=== PATIENT | male | born 1975 | race African-American/Black ===

== ENCOUNTER 2020-03-11 09:32 | Inpatient (IN) ==
--- NOTE | 2020-03-11 09:54 | Emergency Department Note ---
Impression & Plan Acute urinary retention ED Provider Note NAME: GEOFFREY Swanson [id number] PEOPLES AGE: 44 SEX: M : 1975 ARRIVES VIA: [employer] INFORMANT: Patient, ED PROVIDER(S): Tyrone Romano DO CHIEF COMPLAINT: Urinary retention HPI: The patient is a 44-year-old male who presented to the emergency department for an evaluation of urinary retention. The patient has been noticing decreasing urine output over the last 3 days. He does have a history of prostate problems in the past but does not take any medications for prostate p roblems and currently carries no medical problems is only [id number] medications that he uses or NSAIDs. He denies having any nausea or vomiting. He does complain of abdominal distention and discomfort. He does not have any back pain. He does not have any current headache. The patient does complain of left lower extremity pain which goes from his groin down into his lower leg. He denies having any swelling numbness or coldness. He states his pain is moderate. His pain worsened after they [facility] to [facility] and he started having derik hematuria. ROS: See above HPI for pertinent positives & negatives. A total of 10 systems reviewed and were otherwise negative. PAST MEDICAL HISTORY: See Below PAST SURGICAL HISTORY: See Below FAMILY HISTORY: See Below SOCIAL HISTORY: See Below HOME MEDICATIONS: See Below ALLERGIES: See Below VITALS: See Below PHYSICAL EXAMINATION: GENERAL: The patient is awake and alert. He is very anxious appearing and appears to be uncomfortable. EYES: The conjunctivae are clear. The pupils are round and reactive. EARS, NOSE, MOUTH AND THROAT: The nose is without any evidence of any deformity. Mucous membranes are moist. Tongue is midline. NECK: The neck is nontender and supple. RESPIRATORY: Normal respiratory effort is noted there is no evidence of wheezing rhonchi or rales CARDIOVASCULAR: Regular rate and rhythm noted there no murmurs rubs or gallops normal S1 normal S2. GASTROINTESTINAL: The abdomen is moderately distended with suprapubic tenderness. There is no guarding rigidity. BACK: No midline tenderness or or step-off noted range of motion in flexion extension as well as rotation no signs of muscle spasm noted MUSCULOSKELETAL/EXTREMITIES: There is no evidence of gross deformity full range of motion is noted in the hips and shoulders. SKIN: There is no obvious evidence of any rash. There are no petechiae, pallor or cyanosis noted. NEUROLOGIC: Patient is awake alert and oriented x3 strength is symmetric patellar reflexes are 2+ bilaterally MEDICAL DECISION MAKING: The patient is a 44-year-old male who presented [facility] the emergency department [facility] jail for an evaluation of difficulty urinating. The patient has a history of enlarged inflamed prostate in the past but he does not take any chronic medications for prostate. The patient has been noticing decreased urine output over the last few days. He had been unable to pass urine since this morning. The patient symptoms were moderate to severe. He was sent to the emergency department after they were unable to place a Cardona catheter at the jail. We made multiple attempts to pass a Cardona catheter in the emergency department. I was concerned a false track was created as the Cardona catheter passage was difficult. The patient has no history of stricture. This reason we consulted urology. They evaluated the patient in the emergency department but felt that he required to be taken to the emergency department for further evaluation. I discussed the patient's laboratory and radiographic studies with him. He was treated with IV antibiotics. He also complained of some lower extremity pain. A Doppler was ordered but is still pending at this time. Triage Nursing notes reviewed. Prior medical records reviewed Vital Signs: reviewed and remarkable for no significant abnormalities Differential diagnosis: Etiologies such as appendicitis, diverticulitis, obstruction, inflammatory bowel disease, renal colic, PUD, biliary pathology, pancreatitis, mesenteric ischemia, aortic pathology, infections, genitourinary, UTI, perforated viscus, as well as others were entertained. ER treatment provided: See below Diagnostics interpreted by me: ECG: EKG was obtained in the emergency department prior to the patient going to the operating room. My interpretation is normal sinus rhythm at 87 bpm. There is no ectopy. There were no acute ST segment abnormalities noted. Cardiac Monitoring: An order was placed for continuous cardiac monitoring. The monitor shows a rate of 92 bpm with sinus rhythm. Laboratory studies: As stated above and show below. Imaging studies: See below Consultation(s): 1130: I discussed this case with Rosie who is on for urology they will evaluate the patient in the emergency department. The urology cart was ordered to the bedside. Past Med/Surg History Medical History (Updated 03/11/20 @ 16:43 by Tyrone Romano DO) No significant past medical history Surgical History (Updated 03/11/20 @ 15:09 by Kiley Camarena MD) No significant past surgical history Social History Smoking Status: Never smoker Do You Dip or Chew Tobacco: No; Hx Alcohol Use: No Hx Substance Use: No Allergies Allergies Allergy/AdvReac Type Severity Reaction Status Date / Time No Known Drug Allergies Allergy Unknown Unverified 03/11/20 10:53 peanut Allergy Unknown Unverified 03/11/20 10:53 Home Meds Home Medications Medication Instructions Recorded Confirmed No Known Home Medications 03/11/20 03/11/20 Results & Data (ED) Vital Signs Vital Signs - 24 hr 03/11/20 09:36 03/11/20 09:52 03/11/20 11:33 Temperature 36.9 C Temperature Source Oral Pulse Rate 96 H Pulse Rate [Apical] 79 Respiratory Rate 20 18 Respiratory Effort / Characteristics Respiratory Depth Respiratory Pattern Blood Pressure 133/91 Blood Pressure [Left Arm] 134/90 Blood Pressure Mean 105 Blood Pressure Mean [Left Arm] 104 Blood Pressure Position [Left Arm] Pulse Oximetry 96 96 97 Oxygen Delivery Method Room Air Room Air Room Air Sepsis Recent Fever Within 48 Hours No Sepsis New/Unexplained Change in Mental Status No Sepsis Action Taken by Nursing No Action Required 03/11/20 13:00 03/11/20 14:42 Temperature 37.7 C H Temperature Source Oral Pulse Rate Pulse Rate [Apical] 84 Respiratory Rate 18 18 Respiratory Effort / Characteristics Non-Labored Spontaneous Respiratory Depth Normal Respiratory Pattern Regular Blood Pressure Blood Pressure [Left Arm] 135/88 109/72 Blood Pressure Mean Blood Pressure Mean [Left Arm] 103 84 Blood Pressure Position [Left Arm] Lying Pulse Oximetry 97 93 Oxygen Delivery Method Room Air Room Air Sepsis Recent Fever Within 48 Hours Sepsis New/Unexplained Change in Mental Status Sepsis Action Taken by Assisted Medications Current Medication List: was personally reviewed by me Laboratory Data Attestation: I reviewed the patient's lab results. Result diagrams: 03/11/20 15:13 03/11/20 10:10 Lab Results 03/11/20 03/11/20 03/11/20 Range/Units 10:10 10:10 14:10 WBC 10.91 H (4.8-10.8) K/uL RBC 4.76 (4.7-6.1) M/uL Hgb 13.4 L (14.0-18.0) g/dL Hct 38.2 L (42-52) % MCV 80.3 (80-100) fL MCH 28.2 (25-34) pg MCHC 35.1 (32-36) g/dL RDW Std Deviation 41.7 (36.4-46.3) fL RDW Coeff of Nino 14.2 (11.5-14.5) % Plt Count 73 L (130-400) K/uL MPV 10.2 (7.4-10.4) fL Immature Gran % (Auto) 0.5 % Neut % (Auto) 70.1 % Lymph % (Auto) 17.6 % [place] % (Auto) 11.5 % Eos % (Auto) 0.2 % Baso % (Auto) 0.1 % Neut # (Auto) 7.64 H (1.4-6.5) K/uL Lymph # (Auto) 1.92 (1.2-3.4) K/uL [place] # (Auto) 1.26 H (0.11-0.59) K/uL Eos # (Auto) 0.02 (0-0.5) K/uL Baso # (Auto) 0.01 (0-0.2) K/uL Immature Gran # (Auto) 0.06 H (0.00-0.02) K/uL Platelet Estimate Decreased L (Normal) Sodium 138 (136-145) mmol/L Potassium 3.6 (3.5-5.1) mmol/L Chloride 103 (98-107) mmol/L Carbon Dioxide 28 (21-32) mmol/L Anion Gap 7.0 (3-11) BUN 21 H (7-18) mg/dl Creatinine 1.08 (0.6-1.4) mg/dl Est Cr Clr Drug Dosing Not Reportable Est GFR ( Amer) 96.9 Est GFR (Non-Af Amer) 83.6 BUN/Creatinine Ratio 19.8 (10-20) Glucose 128 H (70-99) mg/dl Calcium 8.8 (8.5-10.1) mg/dl Total Bilirubin 0.9 (0.2-1) mg/dl AST 75 H (15-37) U/L ALT 100 H (12-78) U/L Alkaline Phosphatase 187 H (45-117) U/L Troponin I (0-0.045) ng/ml Total Protein 7.4 (6.4-8.2) gm/dl Albumin 3.2 L (3.4-5.0) gm/dl Globulin 4.2 H (2.5-4.0) gm/dl Albumin/Globulin Ratio 0.8 L (0.9-2) Lipase 92 (73-393) U/L COVID-19 Eval [facility] SARS-CoV-2, RNA, NAAT (NEGATIVE) Blood Type Antibody Screen Crossmatch 03/11/20 03/11/20 03/11/20 Range/Units 14:10 15:13 15:13 WBC (4.8-10.8) K/uL RBC (4.7-6.1) M/uL Hgb (14.0-18.0) g/dL Hct (42-52) % MCV (80-100) fL MCH (25-34) pg MCHC (32-36) g/dL RDW Std Deviation (36.4-46.3) fL RDW Coeff of Nino (11.5-14.5) % Plt Count (130-400) K/uL MPV (7.4-10.4) fL Immature Gran % (Auto) % Neut % (Auto) % Lymph % (Auto) % [place] % (Auto) % Eos % (Auto) % Baso % (Auto) % Neut # (Auto) (1.4-6.5) K/uL Lymph # (Auto) (1.2-3.4) K/uL [place] # (Auto) (0.11-0.59) K/uL Eos # (Auto) (0-0.5) K/uL Baso # (Auto) (0-0.2) K/uL Immature Gran # (Auto) (0.00-0.02) K/uL Platelet Estimate (Normal) Sodium (136-145) mmol/L Potassium (3.5-5.1) mmol/L Chloride (98-107) mmol/L Carbon Dioxide (21-32) mmol/L Anion Gap (3-11) BUN (7-18) mg/dl Creatinine (0.6-1.4) mg/dl Est Cr Clr Drug Dosing Est GFR ( Amer) Est GFR (Non-Af Amer) BUN/Creatinine Ratio (10-20) Glucose (70-99) mg/dl Calcium (8.5-10.1) mg/dl Total Bilirubin (0.2-1) mg/dl AST (15-37) U/L ALT (12-78) U/L Alkaline Phosphatase (45-117) U/L Troponin I < 0.015 (0-0.045) ng/ml Total Protein (6.4-8.2) gm/dl Albumin (3.4-5.0) gm/dl Globulin (2.5-4.0) gm/dl Albumin/Globulin Ratio (0.9-2) Lipase (73-393) U/L COVID-19 Eval Order SARS-CoV-2, RNA, NAAT NEGATIVE (NEGATIVE) Blood Type AB Positive Antibody Screen NEGATIVE Crossmatch See Detail 03/11/20 Range/Units 15:13 WBC 11.09 H (4.8-10.8) K/uL RBC 4.76 (4.7-6.1) M/uL Hgb 13.4 L (14.0-18.0) g/dL Hct 38.2 L (42-52) % MCV 80.3 (80-100) fL MCH 28.2 (25-34) pg MCHC 35.1 (32-36) g/dL RDW Std Deviation 41.8 (36.4-46.3) fL RDW Coeff of Nino 14.3 (11.5-14.5) % Plt Count 79 L (130-400) K/uL MPV 10.3 (7.4-10.4) fL Immature Gran % (Auto) % Neut % (Auto) % Lymph % (Auto) % [place] % (Auto) % Eos % (Auto) % Baso % (Auto) % Neut # (Auto) (1.4-6.5) K/uL Lymph # (Auto) (1.2-3.4) K/uL [place] # (Auto) (0.11-0.59) K/uL Eos # (Auto) (0-0.5) K/uL Baso # (Auto) (0-0.2) K/uL Immature Gran # (Auto) (0.00-0.02) K/uL Platelet Estimate (Normal) Sodium (136-145) mmol/L Potassium (3.5-5.1) mmol/L Chloride (98-107) mmol/L Carbon Dioxide (21-32) mmol/L Anion Gap (3-11) BUN (7-18) mg/dl Creatinine (0.6-1.4) mg/dl Est Cr Clr Drug Dosing Est GFR ( Amer) Est GFR (Non-Af Amer) BUN/Creatinine Ratio (10-20) Glucose (70-99) mg/dl Calcium (8.5-10.1) mg/dl Total Bilirubin (0.2-1) mg/dl AST (15-37) U/L ALT (12-78) U/L Alkaline Phosphatase (45-117) U/L Troponin I (0-0.045) ng/ml Total Protein (6.4-8.2) gm/dl Albumin (3.4-5.0) gm/dl Globulin (2.5-4.0) gm/dl Albumin/Globulin Ratio (0.9-2) Lipase (73-393) U/L COVID-19 Eval Order SARS-CoV-2, RNA, NAAT (NEGATIVE) Blood Type Antibody Screen Crossmatch Administered Medications Sodium Chloride (Nss) 250 mls @ 15 mls/hr IV .[id number] PRN PRN Reason: For Transfusion Stop: 03/12/20 00:03 Last Admin: 03/11/20 15:25 Dose: 15 mls/hr Documented by: [id number] Discontinued Medications Levofloxacin/Dextrose (Levaquin/D5w) 750 mg in 150 mls @ 100 mls/hr IV NOW STA Stop: 03/11/20 15:28 Last Admin: 03/11/20 15:23 Dose: 100 mls/hr Documented by: [id number] Ioversol (Optiray 300) 50 ml IV ONCE ONE Stop: 03/11/20 15:55 Last Admin: 03/11/20 15:56 Dose: Not Given Documented by: [id number] Ioversol (Optiray 300) 50 ml NA ONCE ONE Stop: 03/11/20 15:58 Last Admin: 03/11/20 16:27 Dose: Not Given Documented by: [id number] Blood Pressure Blood Pressure Findings: Normal blood pressure Discharge Plan Visit Data Chief Complaint: Unable to Void Stated Complaint: UNABLE TO VOID ED Provider: Tyrone Romano Discharge Problem: Acute urinary retention Patient Disposition: Still a Patient Condition: Good Discharge Instructions Interventions: ED Discharge Assessment Last Done: 03/11/20 14:41
[2020-03-11 10:46] LABS: Alanine Aminotransferase 100 U/L (12-78); Albumin Level 3.2 gm/dl (3.4-5.0); Aspartate Aminotransferase 75 U/L (15-37); BUN Creatinine Ratio 19.8 (10-20); Blood Urea Nitrogen 21 mg/dl (7-18); Calcium 8.8 mg/dl (8.5-10.1); Carbon Dioxide 28 mmol/L (21-32); Chloride 103 mmol/L (98-107); Est GFR (African American) 96.9; Est GFR (Non-African American) 83.6; Glucose 128 mg/dl (70-99); Lipase 92 U/L (73-393); Potassium 3.6 mmol/L (3.5-5.1); Sodium 138 mmol/L (136-145)
[2020-03-11 10:49] LABS: Albumin Globulin Ratio 0.8 (0.9-2); Alkaline Phosphatase 187 U/L (45-117); Bilirubin,Total 0.9 mg/dl (0.2-1); Globulin 4.2 gm/dl (2.5-4.0); Total Protein 7.4 gm/dl (6.4-8.2)
[2020-03-11 10:54] LABS: Hematocrit (blood only) 38.2 % (42-52); Hemoglobin 13.4 g/dL (14.0-18.0); Lymphocytes % (auto) 17.6 %; Mean Corpuscular Hemoglobin 28.2 pg (25-34); Mean Corpuscular Hgb Conc 35.1 g/dL (32-36); Mean Corpuscular Volume 80.3 fL (80-100); Mean Platelet Volume 10.2 fL (7.4-10.4); Monocytes % (auto) 11.5 %; Neutrophils % (auto) 70.1 %; Platelet Count 73 K/uL (130-400); RDW Coefficient of Variation 14.2 % (11.5-14.5); RDW Standard Deviation 41.7 fL (36.4-46.3); Red Blood Count 4.76 M/uL (4.7-6.1); White Blood Count 10.91 K/uL (4.8-10.8)
[2020-03-11 10:55] LABS: Basophils # (auto) 0.01 K/uL (0-0.2); Basophils % (auto) 0.1 %; Eosinophils # (auto) 0.02 K/uL (0-0.5); Eosinophils % (auto) 0.2 %; Immature Granulocytes # (auto) 0.06 K/uL (0.00-0.02); Immature Granulocytes % (auto) 0.5 %; Lymphocytes # (auto) 1.92 K/uL (1.2-3.4); Monocytes # (auto) 1.26 K/uL (0.11-0.59); Neutrophils # (auto) 7.64 K/uL (1.4-6.5); Platelet Estimate Decreased (Normal)
[2020-03-11] MEDS ORDERED: levoFLOXacin/D5W 750 MG/150 ML BAG IV STA (13:59)
[2020-03-11] MEDS ORDERED: SODIUM CHLORIDE 0.9% 250 ML IV PRN (14:01)
--- NOTE | 2020-03-11 14:24 | Urology Consultation ---
Date of Consultation March 11, 2020 Assessment & Plan (1) Acute urinary retention: 44yo male admitted with acute urinary retention -Unable to pass Valle catheter -Dr. Sauer attempted bedside cysto that was unsuccessful -Findings reviewed with Dr. Sauer. Given his acute urinary retention, will proceed to the OR for Cystoscopy, possible urethral dilation, possible valle catheter placement, possible suprapubic tube placement. Risks and benefits to be reviewed with patient by Dr. Sauer. OR notified. Preoperative CXR and EKG ordered. Will cover with IV antibiotics preoperatively. -Patient agreeable to plan. All questions were answered. Supervising Physician Co-Signing Physician Notes agree with above History of Present Illness Reason for Consultation: Urinary retention History of Present Illness The patient is a 44-year-old male who presented to the emergency department today for evaluation of urinary retention. The patient has been noticing decreasing urine output over the last 3 days and difficulty voiding. He stated his pain worsened after they tried to insert a Valle catheter at the [facility] and he started having derik hematuria. No significant PMHx. Chart Review: Afebrile WBC 10.91 Cr 1.08 Bladder scan 561ml Patient examined at bedside today with Dr. Sauer. He reports decreased urine output and difficulty with emptying his bladder over the past 3 days. His pain has worsened with the multiple attempts to insert a catheter. He does reports some abdominal discomfort and distention. Denies fevers or chills. Denies nausea or vomiting. Denies hx of prostate cancer or prostate issues. Denies hx of urinary retention. Allergies Allergy/AdvReac Type Severity Reaction Status Date / Time No Known Drug Allergies Allergy Unknown Unverified 03/11/20 10:53 peanut Allergy Unknown Unverified 03/11/20 10:53 Home Medications Home Medications Medication Instructions Recorded Confirmed Type No Known Home Medications 03/11/20 03/11/20 History Patient History Medical History (Updated 03/11/20 @ 15:09 by Kiley Camarena MD) No significant past medical history Surgical History (Updated 03/11/20 @ 15:09 by Kiley Camarena MD) No significant past surgical history Social History Smoking Status: Never smoker Do You Dip or Chew Tobacco: No; Hx Alcohol Use: No Hx Substance Use: No Review of Systems Constitutional: as per Subjective / HPI Gastrointestinal: as per Subjective / HPI Genitourinary: + as per Subjective / HPI Physical Exam Constitutional: Appears uncomfortable and anxious Neck: normal visual inspection Respiratory: normal respiratory effort, lungs clear to auscultation Cardiovascular: Rate/Rhythm: regular rate and regular rhythm Gastrointestinal (Abdomen): Suprapubic tenderness Musculoskeletal: Head/Neck/Chest: normocephalic Skin: no rashes, warm and dry Neurologic: awake; not confused Psychiatric: Orientation: alert, oriented x 3 and cooperative Genitourinary: no penis abnormality and no scrotum abnormality Results & Data ([facility]) Vital Signs (Past 12 Hours) Vital Signs Temp Pulse Pulse Resp BP BP Pulse Ox 03/11/20 13:00 84 18 135/88 97 03/11/20 11:33 79 18 134/90 97 03/11/20 09:52 96 03/11/20 09:36 36.9 C 96 H 20 133/91 96 PG Care Time/CCT Total # of Minutes Spent Total Time Spent with Patient: Total time spent is greater than 50% in coordination of care (as documented) at patient's floor/unit and/or counseling patient: Coding Level of Care Code 44334 Inpt Consult Level 4 Diagnoses Acute urinary retention R33.8
--- NOTE | 2020-03-11 14:42 | Electrocardiogram Report ---
Test Reason : Blood Pressure : / mmHG Vent. Rate : 087 BPM Atrial Rate : 087 BPM P-R Int : 154 ms QRS Dur : 094 ms QT Int : 370 ms P-R-T Axes : 036 022 015 degrees QTc Int : 445 ms Normal sinus rhythm Normal ECG No previous ECGs available Confirmed by Negrito Dennis ([id number]) on 03/11/2020 2:42:33 PM Referred By: [facility] Confirmed By:Jasvir Dennis
[2020-03-11] MEDS ORDERED: MIDAZOLAM HCL 1 MG/ML 2ML VIAL ONE (14:43)
[2020-03-11] MEDS ORDERED: fentaNYL citrate 100 MCG/2 ML VIAL ONE ×2 (14:43→15:40)
--- NOTE | 2020-03-11 14:59 | History & Physical Bridge Note ---
Date of Service March 11, 2020 History & Physical Bridge Note I have examined the patient, reviewed the History & Physical and in the interval since the performance of the History & Physical I have noted the following changes of clinical significance: no changes noted
--- NOTE | 2020-03-11 15:03 | Anesthesiology Consultation ---
Date of Service March 11, 2020 Assessment & Plan (1) Encounter for pre-operative examination: Chart Review Chart Review: Acceptable Risk for Surgery and Patient NOT seen in Pre Admission Testing Consults Requested none ASA [id number] Proposed Anesthesia Anesthesia Type: General Risk / Benefits Reviewed With: PT / POA / Parent / Guardian, Accepts Plan and Informed Consent Obtained Additional Notes Patient consented for receiving blood products with anesthesia consent due to labs showing thrombocytopenia. Type and cross and platelet recheck ordered and drawn prior to going to operating room History Surgery Operation Date: 03/11/20 15:00 Proposed Procedures p Cystoscopy, Ureteral Dilation, - Jasson Sauer MD s Suprapubic Catheter Placement - Jasson Sauer MD Height/Weight Height: 5 ft 9 in Weight: 134 kg Allergies Allergy/AdvReac Type Severity Reaction Status Date / Time No Known Drug Allergies Allergy Unknown Unverified 03/11/20 10:53 peanut Allergy Unknown Unverified 03/11/20 10:53 Medications Home Medications Medication Instructions Recorded Confirmed Last Taken No Known Home Medications 03/11/20 03/11/20 Unknown NPO Date Last Intake of Fluids: 03/10/20 Time Last Intake of Fluids: 22:00 Date Last Intake of Solids: 03/10/20 Time Last Intake of Solids: 22:00 Past Medical History Medical History (Updated 03/11/20 @ 15:09 by Kiley Camarena MD) No significant past medical history Exercise / Class Metabolic Activity II 4-5 Yardwork/Stairs/Walk up hill Past Surgical History Surgical History (Updated 03/11/20 @ 15:09 by Kiley Camarena MD) No significant past surgical history Past Anesthesia History No Family Hx of Anesthesia Complications History of PONV No Hx of Motion Sickness Social History Smoking Status: Never smoker Do You Dip or Chew Tobacco: No Hx Alcohol Use: No Hx Substance Use: No Review of Systems Negative for chest pain or shortness of breath. Patient denies active symptoms of GERD. Physical Exam Vital Signs Last Vital Signs Temp 37.7 C H 03/11/20 14:42 Pulse 84 03/11/20 13:00 Resp 18 03/11/20 14:42 BP 109/72 03/11/20 14:42 Pulse Ox 93 03/11/20 14:42 Constitutional + morbidly obese ENMT Mouth: no TMJ abnormality and oral opening not small Thyromental Distance: > or= 3.5 Finger Breadths Mallampati Class: II Neck normal visual inspection; neck extension not limited Respiratory normal respiratory effort Auscultation: lungs clear to auscultation bilaterally Cardiovascular Rate/Rhythm: regular rate and regular rhythm Heart Sounds: no murmur Neurologic moves all extremities Psychiatric Orientation: alert and oriented x 3 Testing Laboratory Results 03/11/20 10:10 03/11/20 10:10
[2020-03-11 15:22] LABS: Hematocrit (blood only) 38.2 % (42-52); Hemoglobin 13.4 g/dL (14.0-18.0); Mean Corpuscular Hemoglobin 28.2 pg (25-34); Mean Corpuscular Hgb Conc 35.1 g/dL (32-36); Mean Corpuscular Volume 80.3 fL (80-100); RDW Coefficient of Variation 14.3 % (11.5-14.5); RDW Standard Deviation 41.8 fL (36.4-46.3); Red Blood Count 4.76 M/uL (4.7-6.1); White Blood Count 11.09 K/uL (4.8-10.8)
[2020-03-11 15:26] LABS: Mean Platelet Volume 10.3 fL (7.4-10.4); Platelet Count 79 K/uL (130-400)
[2020-03-11] MEDS ORDERED: LIDOCAINE HCL 2% 2 ML VIAL/AMP(20MG/ML) INFIL ONE (15:45)
[2020-03-11] MEDS ORDERED: PROPOFOL IV EMULSION 10 MG/ML 20 ML VIAL IV ONE (15:45)
[2020-03-11] MEDS ORDERED: ONDANSETRON INJ 2 MG/ML 2 ML VIAL ONE (15:45)
[2020-03-11] MEDS ORDERED: GLYCOPYRROLATE 0.2 MG/ML VIAL ONE (15:46)
[2020-03-11] MEDS ORDERED: OPTIRAY 300 IV ONE (15:54)
[2020-03-11] MEDS ORDERED: OPTIRAY 300 ONE (15:57)
[2020-03-11] MEDS ORDERED: HYDROmorphone INJ 2 MG/ML SYR/VIAL ONE (16:02)
[2020-03-11] MEDS ORDERED: SUGAMMADEX SODIUM 200 MG/2 ML VIAL IV ONE (16:57)
--- NOTE | 2020-03-11 16:57 | Ultrasound Report ---
US guide intraoperative (NO CHARGE) CLINICAL HISTORY: Intraoperative guidance for insertion of a suprapubic catheter COMPARISON STUDY: No previous studies for comparison. FINDINGS: Ultrasound guidance was provided by the radiology sonography during placement of a supra pu bic catheter. There was no radiologist input. Images of the bladder reveal a volume of 600 cc. The urine is minimally echogenic. IMPRESSION: Ultrasound guidance provided by the radiology hand icer during placement of a suprapub ic catheter. ACT 112: Negative or not required by law. Electronically signed by: Nader Robles M.D. 03/11/2020 4:56 PM
--- NOTE | 2020-03-11 17:53 | Anesthesiology Progress Note ---
Date of Service March 11, 2020 Anesthesia Post Procedure Vital Signs Vital Signs: Temp Pulse Pulse Resp BP BP Pulse Ox 03/11/20 17:40 36.6 C 93 H 23 145/79 H 96 03/11/20 17:30 36.6 C 95 H 21 129/65 96 03/11/20 17:20 94 H 17 129/81 95 03/11/20 17:10 98 H 20 140/84 98 03/11/20 17:03 36.8 C 100 H 15 157/79 H 93 03/11/20 14:42 37.7 C H 18 109/72 93 03/11/20 13:00 84 18 135/88 97 03/11/20 11:33 79 18 134/90 97 03/11/20 09:52 96 03/11/20 09:36 36.9 C 96 H 20 133/91 96 Transfer of Care Handoff Completed per policy Notes Mental Status: alert / awake / arousable and participated in evaluation Patient Amnestic to Procedure: Yes Nausea / Vomiting: adequately controlled Pain: adequately controlled Airway Patency, RR, SpO2: stable & adequate BP & HR: stable & adequate Hydration State: stable & adequate Anesthetic Complications: no major complications apparent and Pt Satisfied with anesthetic care
[2020-03-11] MEDS ORDERED: PHENAZOPYRIDINE HCL 200 MG TAB PO PRN (18:48)
[2020-03-11] MEDS ORDERED: ONDANSETRON INJ 2 MG/ML 2 ML VIAL IV PRN (18:48)
[2020-03-11] MEDS ORDERED: LACTATED RINGER'S 1,000 ML IV SCH (18:48)
[2020-03-11] MEDS ORDERED: MoRPHine SULFATE 2 MG/ML CARP IV PRN ×2 (18:52→18:53)
--- NOTE | 2020-03-11 19:23 | Operative Report ---
PG Post Operative Report Pre & Post Diagnosis Operation Date: 03/11/20 15:00 Pre-Op Diagnosis: Acute urinary retention Post-Op Diagnosis: Acute urinary retention I identified the patient and participated in the time-out.: Yes Procedure Operation Date: 03/11/20 15:00 Actual Procedures p Cystoscopy, - Jasson Sauer MD s Ultrasound Guided Placement of Suprapubic Catheter - Jasson Sauer MD Surgeon Jasson Sauer MD Integration Lead NONE Estimated Blood Loss 5 Findings See Below Cystoscopic exam showed a very large false passage I was unable to find an opening into the true urethra. Ultrasound showed a bladder volume of 590 cc Specimens None Drains Stamey suprapubic tube Anesthesia Type General Complications none Disposition Accompanied Patient To Recovery: Yes Disposition: Recovery Room Indications Patient is a 44-year-old black male who is from the local long term. He went into urinary retention this morning. The people at the long term made multiple attempts to pass a Cardona catheter but were unsuccessful. After the Cardona catheter attempts he did develop gross hematuria. He was sent to the emergency room where they tried several times to pass catheters and were also unsuccessful. We were asked to see the patient for his urinary retention. I tried once to pass a coud catheter but met resistance in the mid urethra. I believe he had a possible stricture so I passed a filiform into the bladder which went easily and then passed a follower which also went easy this went into the bladder because he drained some urine from the follower. On removing the collar to use the next size up the metal tip from the follower itself and remained in the bladder. I attempted a flexible cystoscopy in the emergency room but was unable to find an opening appeared that the patient had a large false passage. Patient was then taken to the OR Description of Procedure After the induction of an adequate general anesthetic and appropriate timeout patient was placed in the dorsolithotomy position Lower abdomen genitalia were prepped with Hibiclens draped in sterile fashion Using a 22 Bulgarian cystoscope I attempted to do cystoscopy I was very difficult to see due to some bleeding although I was able to get to the mid urethra he had a very large false passage. I was unable to find any opening into the true urethra. I tried probing with a floppy tip guidewire into various areas that seem to be open but none of them actually connected with the bladder. After trying multiple times to find the true lumen of the urethra cystoscope was removed I had radiology orderly with a cup with an ultrasound machine see scanned the bladder and had about 590 cc of urine. Patient's lower abdomen were then was then prepped with Betadine draped in a sterile fashion small incision was made 2 fingerbreadths above the symphysis pubis in the midline I then used a spinal needle and passed that through the abdominal wall into the bladder and aspirated urine. After a small stab wound was made 2 fingerbreadths above the symphysis pubis and a Stamey suprapubic tube was passed. On the initial pass I was unable to aspirate any urine so the Stamey suprapubic tube was repositioned and this time it did go into the bladder with return of urine. The trocar was removed. There was a large amount of drainage from the suprapubic tube. The suprapubic tube was then sutured in place with a 0 Prolene. Suprapubic tube was then taped to the patient's abdomen securely hooked to gravity drainage. Patient tolerated the procedure well was taken recovery room in stable condition. All needle sponge instrument counts were correct at the end of the case I attest to the content of the Intraoperative Record and any orders documented therein. Any exceptions are noted below.
[2020-03-11 19:57] LABS: Appearance Urine Turbid (Clear); Bilirubin Urine Negative (Negative); Blood Urine 3+ (Negative); Color Urine Red; Glucose Urine UA Negative (Negative); Ketones Urine Negative (Negative); Leukocyte Esterase Urine Negative (Negative); Nitrite Urine Negative (Negative); Protein Urine 3+ (Negative); Specific Gravity Urine >= 1.030 (1.000-1.030); Urobilinogen Urine Positive (Negative); pH Urine 6.5 (4.5-7.5)
[2020-03-11 20:00] LABS: RBC Urine >30 /hpf (0-4)
[2020-03-11 20:02] LABS: Epithelial Cell Urine 0-5 /lpf (0-5)
[2020-03-11 20:03] LABS: Bacteria Urine Negative (Negative)
[2020-03-11] MEDS: DOCUSATE SODIUM 100 MG CAP PO SCH (21:20)
[2020-03-12] MEDS: oxyCODONE HCL IR 5 MG TAB (IMMEDIATE RELEASE) PO PRN ×2 (02:07→10:14)
[2020-03-12 07:17] LABS: Hematocrit (blood only) 35.6 % (42-52); Hemoglobin 12.2 g/dL (14.0-18.0); Mean Corpuscular Hemoglobin 27.6 pg (25-34); Mean Corpuscular Hgb Conc 34.3 g/dL (32-36); Mean Corpuscular Volume 80.5 fL (80-100); RDW Coefficient of Variation 14.7 % (11.5-14.5); RDW Standard Deviation 43.2 fL (36.4-46.3); Red Blood Count 4.42 M/uL (4.7-6.1); White Blood Count 10.03 K/uL (4.8-10.8)
[2020-03-12 07:24] LABS: Mean Platelet Volume 10.2 fL (7.4-10.4); Platelet Count 95 K/uL (130-400)
[2020-03-12 07:41] LABS: Basophils # (auto) 0.02 K/uL (0-0.2); Basophils % (auto) 0.2 %; Eosinophils # (auto) 0.05 K/uL (0-0.5); Eosinophils % (auto) 0.5 %; Immature Granulocytes # (auto) 0.06 K/uL (0.00-0.02); Immature Granulocytes % (auto) 0.6 %; Lymphocytes # (auto) 2.35 K/uL (1.2-3.4); Lymphocytes % (auto) 23.4 %; Monocytes # (auto) 0.96 K/uL (0.11-0.59); Monocytes % (auto) 9.6 %; Neutrophils # (auto) 6.59 K/uL (1.4-6.5); Neutrophils % (auto) 65.7 %
[2020-03-12 07:43] LABS: BUN Creatinine Ratio 17.2 (10-20); Calcium 8.5 mg/dl (8.5-10.1); Creatinine Clr Calc Pharmacy 143.7 ml/min; Est GFR (African American) 120.8; Est GFR (Non-African American) 104.2; Potassium 3.7 mmol/L (3.5-5.1)
[2020-03-12] MEDS: CIPROFLOXACIN / D5W 400 MG/200 ML BAG IV SCH ×2 (08:02→21:06)
[2020-03-12] MEDS: DOCUSATE SODIUM 100 MG CAP PO SCH ×2 (08:03→21:06)
--- NOTE | 2020-03-12 08:57 | Urology Progress Note ---
Date of Service March 12, 2020 Assessment & Plan Admission and Anticipated Discharge Date Admission Date: March 11, 2020 Assessment #1 urethral false passage with suprapubic tube insertion Suprapubic tube is draining well Patient's showing no signs of sepsis We will proceed to the OR today to try to place a Cardona catheter All of his questions were answered he agrees to proceed Procedure described to the patient including the risks and benefits as per the consent He also has a filiform in his bladder which needs to be removed Subjective Postop day 1 from cystoscopy and Stamey suprapubic tube insertion Patient is afebrile vital signs are stable His only complaint is some abdominal discomfort Suprapubic tube is draining clear yellow urine Abdomen is soft round tender near the suprapubic insertion site Positive bowel sounds Extremities without calf pain or edema Suprapubic tube site appears clean Results & Data ([facility]) Vital Signs (Past 12 Hours) Vital Signs Temp Pulse Resp BP Pulse Ox 03/12/20 07:42 37.3 C 79 16 110/72 97 03/12/20 03:10 37.4 C 88 20 122/72 92 03/11/20 23:20 36.9 C 86 20 91/55 L 93 03/11/20 21:36 37.0 C 94 H 17 115/70 95 Laboratory Results Laboratory Results - last 24 hr 03/11/20 03/11/20 03/11/20 10:10 10:10 14:10 WBC 10.91 H RBC 4.76 Hgb 13.4 L Hct 38.2 L MCV 80.3 MCH 28.2 MCHC 35.1 RDW Std Deviation 41.7 RDW Coeff of Nino 14.2 Plt Count 73 L MPV 10.2 Immature Gran % (Auto) 0.5 Neut % (Auto) 70.1 Lymph % (Auto) 17.6 [place] % (Auto) 11.5 Eos % (Auto) 0.2 Baso % (Auto) 0.1 Neut # (Auto) 7.64 H Lymph # (Auto) 1.92 [place] # (Auto) 1.26 H Eos # (Auto) 0.02 Baso # (Auto) 0.01 Immature Gran # (Auto) 0.06 H Platelet Estimate Decreased L Sodium 138 Potassium 3.6 Chloride 103 Carbon Dioxide 28 Anion Gap 7.0 BUN 21 H Creatinine 1.08 Est Cr Clr Drug Dosing Not Reportable Est GFR ( Amer) 96.9 Est GFR (Non-Af Amer) 83.6 BUN/Creatinine Ratio 19.8 Glucose 128 H Calcium 8.8 Total Bilirubin 0.9 AST 75 H ALT 100 H Alkaline Phosphatase 187 H Troponin I Total Protein 7.4 Albumin 3.2 L Globulin 4.2 H Albumin/Globulin Ratio 0.8 L Lipase 92 Urine Color Urine Appearance Urine pH Ur Specific [place] Urine Protein Urine Glucose (UA) Urine Ketones Urine Blood Urine Nitrite Urine Bilirubin Urine Urobilinogen Ur Leukocyte Esterase Urine WBC (Auto) Urine RBC (Auto) U Hyaline Cast (Auto) U Epithel Cells (Auto) Urine Bacteria (Auto) Urine RBC Urine WBC Ur Epithelial Cells Ur Renal Epithelial Cell Urine Crystals Calcium Oxalate Crystal Uric Acid Crystals Triple Phos Crystals Other Crystals Amorphous Sediment Urine Bacteria Granular Casts Waxy Casts RBC Casts WBC Casts Other Casts Urine Mucus Urine Other Urine Trichomonas Urine Yeast Urine Sperm Ur Oval Fat Bodies Nasal Screen MRSA (PCR) COVID-19 Eval Order Covid19 IDNow [facility] SARS-CoV-2, RNA, NAAT Blood Type Antibody Screen Crossmatch 03/11/20 03/11/20 03/11/20 14:10 15:13 15:13 WBC RBC Hgb Hct MCV MCH MCHC RDW Std Deviation RDW Coeff of Nino Plt Count MPV Immature Gran % (Auto) Neut % (Auto) Lymph % (Auto) [place] % (Auto) Eos % (Auto) Baso % (Auto) Neut # (Auto) Lymph # (Auto) [place] # (Auto) Eos # (Auto) Baso # (Auto) Immature Gran # (Auto) Platelet Estimate Sodium Potassium Chloride Carbon Dioxide Anion Gap BUN Creatinine Est Cr Clr Drug Dosing Est GFR ( Amer) Est GFR (Non-Af Amer) BUN/Creatinine Ratio Glucose Calcium Total Bilirubin AST ALT Alkaline Phosphatase Troponin I < 0.015 Total Protein Albumin Globulin Albumin/Globulin Ratio Lipase Urine Color Urine Appearance Urine pH Ur Specific [place] Urine Protein Urine Glucose (UA) Urine Ketones Urine Blood Urine Nitrite Urine Bilirubin Urine Urobilinogen Ur Leukocyte Esterase Urine WBC (Auto) Urine RBC (Auto) U Hyaline Cast (Auto) U Epithel Cells (Auto) Urine Bacteria (Auto) Urine RBC Urine WBC Ur Epithelial Cells Ur Renal Epithelial Cell Urine Crystals Calcium Oxalate Crystal Uric Acid Crystals Triple Phos Crystals Other Crystals Amorphous Sediment Urine Bacteria Granular Casts Waxy Casts RBC Casts WBC Casts Other Casts Urine Mucus Urine Other Urine Trichomonas Urine Yeast Urine Sperm Ur Oval Fat Bodies Nasal Screen MRSA (PCR) COVID-19 Eval Order SARS-CoV-2, RNA, NAAT NEGATIVE Blood Type AB Positive Antibody Screen NEGATIVE Crossmatch See Detail 03/11/20 03/11/20 03/11/20 15:13 19:05 21:15 WBC 11.09 H RBC 4.76 Hgb 13.4 L Hct 38.2 L MCV 80.3 MCH 28.2 MCHC 35.1 RDW Std Deviation 41.8 RDW Coeff of Nino 14.3 Plt Count 79 L MPV 10.3 Immature Gran % (Auto) Neut % (Auto) Lymph % (Auto) [place] % (Auto) Eos % (Auto) Baso % (Auto) Neut # (Auto) Lymph # (Auto) [place] # (Auto) Eos # (Auto) Baso # (Auto) Immature Gran # (Auto) Platelet Estimate Sodium Potassium Chloride Carbon Dioxide Anion Gap BUN Creatinine Est Cr Clr Drug Dosing Est GFR ( Amer) Est GFR (Non-Af Amer) BUN/Creatinine Ratio Glucose Calcium Total Bilirubin AST ALT Alkaline Phosphatase Troponin I Total Protein Albumin Globulin Albumin/Globulin Ratio Lipase Urine Color Cancelled Urine Appearance Cancelled Urine pH Cancelled Ur Specific [place] Cancelled Urine Protein Cancelled Urine Glucose (UA) Cancelled Urine Ketones Cancelled Urine Blood Cancelled Urine Nitrite Cancelled Urine Bilirubin Cancelled Urine Urobilinogen Cancelled Ur Leukocyte Esterase Cancelled Urine WBC (Auto) Cancelled Urine RBC (Auto) Cancelled U Hyaline Cast (Auto) Cancelled U Epithel Cells (Auto) Cancelled Urine Bacteria (Auto) Cancelled Urine RBC Urine WBC Ur Epithelial Cells Ur Renal Epithelial Cell Cancelled Urine Crystals Cancelled Calcium Oxalate Crystal Cancelled Uric Acid Crystals Cancelled Triple Phos Crystals Cancelled Other Crystals Cancelled Amorphous Sediment Cancelled Urine Bacteria Granular Casts Cancelled Waxy Casts Cancelled RBC Casts Cancelled WBC Casts Cancelled Other Casts Cancelled Urine Mucus Cancelled Urine Other Cancelled Urine Trichomonas Cancelled Urine Yeast Cancelled Urine Sperm Cancelled Ur Oval Fat Bodies Cancelled Nasal Screen MRSA (PCR) Negative COVID-19 Eval Order SARS-CoV-2, RNA, NAAT Blood Type Antibody Screen Crossmatch 03/11/20 03/12/20 03/12/20 Unknown 06:47 06:47 WBC 10.03 RBC 4.42 L Hgb 12.2 L Hct 35.6 L MCV 80.5 MCH 27.6 MCHC 34.3 RDW Std Deviation 43.2 RDW Coeff of Nino 14.7 H Plt Count 95 L MPV 10.2 Immature Gran % (Auto) 0.6 Neut % (Auto) 65.7 Lymph % (Auto) 23.4 [place] % (Auto) 9.6 Eos % (Auto) 0.5 Baso % (Auto) 0.2 Neut # (Auto) 6.59 H Lymph # (Auto) 2.35 [place] # (Auto) 0.96 H Eos # (Auto) 0.05 Baso # (Auto) 0.02 Immature Gran # (Auto) 0.06 H Platelet Estimate Sodium 136 Potassium 3.7 Chloride 103 Carbon Dioxide 27 Anion Gap 6.0 BUN 15 Creatinine 0.90 Est Cr Clr Drug Dosing 143.7 Est GFR ( Amer) 120.8 Est GFR (Non-Af Amer) 104.2 BUN/Creatinine Ratio 17.2 Glucose 133 H Calcium 8.5 Total Bilirubin AST ALT Alkaline Phosphatase Troponin I Total Protein Albumin Globulin Albumin/Globulin Ratio Lipase Urine Color Red Urine Appearance Turbid A Urine pH 6.5 Ur Specific [place] >= 1.030 Urine Protein 3+ H Urine Glucose (UA) Negative Urine Ketones Negative Urine Blood 3+ H Urine Nitrite Negative Urine Bilirubin Negative Urine Urobilinogen Positive H Ur Leukocyte Esterase Negative Urine WBC (Auto) Urine RBC (Auto) U Hyaline Cast (Auto) U Epithel Cells (Auto) Urine Bacteria (Auto) Urine RBC >30 H Urine WBC 10-30 H Ur Epithelial Cells 0-5 Ur Renal Epithelial Cell Urine Crystals Calcium Oxalate Crystal Uric Acid Crystals Triple Phos Crystals Other Crystals Amorphous Sediment Urine Bacteria Negative Granular Casts Waxy Casts RBC Casts WBC Casts Other Casts Urine Mucus Urine Other Urine Trichomonas Urine Yeast Urine Sperm Ur Oval Fat Bodies Nasal Screen MRSA (PCR) COVID-19 Eval Order SARS-CoV-2, RNA, NAAT Blood Type Antibody Screen Crossmatch PG Care Time/CCT Total # of Minutes Spent Total Time Spent with Patient: Total time spent is greater than 50% in coordination of care (as documented) at patient's floor/unit and/or counseling patient: Coding Level of Care Code 99166 Subseq Hosp Care Lvl 1
[2020-03-12 11:50] LABS: Hepatitis B Surface Antigen Neg (Neg)
[2020-03-12 12:18] LABS: Hepatitis C IgG 13Yrs+Old_Rflx Neg (Neg)
--- NOTE | 2020-03-12 12:52 | Ultrasound Report ---
ULTRASOUND ABDOMEN COMPLETE CLINICAL HISTORY: Increasing abdominal circumference. COMPARISON STUDY: No priors. TECHNIQUE: Real-time, grayscale, and color flow sonography of the abdomen was performed. Images are r eviewed in the transverse and longitudinal planes. FINDINGS: Liver: The liver is normal in size and demonstrates heterogeneously increased echotexture consistent with hepatic steatosis. Fatty sparing is seen adjacent to gallbladder fossa. There is no intrahepatic biliary ductal dilatation. The main portal vein is patent. Gallbladder: The gallbladder is normal in appearance. No gallstones are identified. There is no gallb ladder wall thickening or pericholecystic fluid. A sonographic Mcneil's sign is reportedly absent. Th e common bile duct measures up to 0.4 cm in diameter. Pancreas: Not visualized due to overlying bowel gas Spleen: The spleen is normal in size and echotexture, measuring 11.3 cm in length. Kidneys: The kidneys are normal in size and echotexture. There is no hydronephrosis. The right kidney measures 13.4 cm in length and the left kidney measures 14.5 cm in length. No shadowing calculi are identified. Abdominal vasculature: The abdominal aorta is not visualized due to overlying bowel gas. The IVC is n ormal as imaged. Ascites: None. IMPRESSION: 1. No acute sonographic abnormality is identified. 2. No gallstones are seen. 3. Hepatic steatosis. 4. Nonvisualization of the pancreas and the abdominal aorta. ACT 112: Negative or not required by law. Electronically signed by: Santosh Shabazz M.D. 03/12/2020 12:51 PM
--- NOTE | 2020-03-12 14:15 | Hospitalist Consultation ---
Date of Consultation March 12, 2020 Assessment & Plan (1) Acute urinary retention: Requiring suprapubic catheter on 03/11/2020. - Per primary team (2) Elevated LFTs: AST/ALT elevated to 75/100. Alk phos is 187. RUQ u/s on 03/12 showed hepatic steatosis and no gallbladder pathology. - Ddx is very broad: * Viral hepatitis * BRUNNER * Autoimmune * Hemochromatosis - Will get a variety of labs to investigate further. Will follow LFTs. If no s ignificant worsening of LFTs, this can be followed up outpatient. If it worsens substantially, will involve GI while he is in the hospital. (3) Thrombocytopenia: Platelets as low as 70s on admission, now up to 95. Initially, thought it might be splenomegaly from liver issues, but spleen normal in size on RUQ u/s. May be just acute illness reaction from urinary retention. - Will get manual differential tomorrow morning. - If recovers, no further follow up needed. (4) DVT prophylaxis: SCDs - Heparin per primary team. Plts > 50k are not a contra-indication to heparin if primary team feels it is warranted. History of Present Illness Attending Physician: Jasson Sauer MD History of Present Illness 44yo M w/ hx of prostate issues who presents as a routine consult for thrombocytopenia and elevated liver function tests. The patient is an inmate at [facility] and presented in acute urinary retention. Unfortunately, due to issues placing a Cardona, he required an emergent suprapubic catheter yesterday evening in the OR. The urologist noted low platelets and elevated LFTs, and requested a medical consult. The patient reports that he has never had any known liver issues at all. He denies any excessive alcohol use in the past. He is otherwise in good state of health. He reports some abdominal pain in the region of the suprapubic catheter, but is otherwise symptom-free. Allergies Allergy/AdvReac Type Severity Reaction Status Date / Time No Known Drug Allergies Allergy Unknown Unverified 03/11/20 10:53 peanut Allergy Unknown Unverified 03/11/20 10:53 Home Medications Home Medications Medication Instructions Recorded Confirmed Type No Known Home Medications 03/11/20 03/11/20 History Patient History Medical History No significant past medical history Surgical History No significant past surgical history Social History Smoking Status: Never smoker Do You Dip or Chew Tobacco: No; Hx Alcohol Use: No Hx Substance Use: No Preferred Language: Macanese Beliefs That Will Affect Care: None Current Living Situation: Other Current Living Situation Comment: [facility] Other Information That Helps Us Care for You: No Feels Safe at Home: Yes Safety Concerns: Feels Safe At This Time Assistive Devices: None Review of Systems Review of Systems: All systems reviewed & are unremarkable except as noted in HPI & below Physical Exam Constitutional: WD/WN, vitals as above + obese; no acute distress Eyes: EOM intact bilaterally; no conjunctival abnormality ENMT: external ear and nose normal, oropharynx normal Neck: trachea midline, no thyromegaly normal visual inspection Respiratory: normal respiratory effort, lungs clear to auscultation no respiratory distress Cardiovascular: RRR, no murmur, no edema Gastrointestinal (Abdomen): Inspection/Auscultation: + abdomen abnormal to inspection (Suprapubic catheter in place) and abdomen not distended Percussion/Palpation: abdomen soft; abdomen nontender, no guarding, abdomen not rigid and no hepatosplenomegaly Musculoskeletal: no cyanosis or clubbing, extremities motor strength 5/5 Skin: no rashes, warm and dry Neurologic: moves all extremities and awake Psychiatric: Orientation: alert, oriented to person and cooperative Results & Data Results & Data ([facility]) Vital Signs (Past 12 Hours) Vital Signs Temp Pulse Resp BP Pulse Ox 03/12/20 07:42 37.3 C 79 16 110/72 97 03/12/20 03:10 37.4 C 88 20 122/72 92 PG Care Time/CCT Total # of Minutes Spent Total Time Spent with Patient: Total time spent is greater than 50% in coordination of care (as documented) at patient's floor/unit and/or counseling patient: Coding Level of Care Code 36157 Inpt Consult Level 4 Diagnoses Acute urinary retention R33.8 Elevated LFTs R79.89 Thrombocytopenia D69.6 DVT prophylaxis Z29.9
[2020-03-12] MEDS ORDERED: LIDOCAINE HCL 2% 2 ML VIAL/AMP(20MG/ML) INFIL ONE (14:48)
[2020-03-12] MEDS ORDERED: PROPOFOL IV EMULSION 10 MG/ML 20 ML VIAL IV ONE ×2 (14:48→16:40)
[2020-03-12] MEDS ORDERED: PHENYLEPHRINE 100MCG/ML 5ML SYR ONE (14:48)
[2020-03-12] MEDS ORDERED: ONDANSETRON INJ 2 MG/ML 2 ML VIAL ONE (14:48)
[2020-03-12] MEDS ORDERED: ePHEDrine sulfate 50 MG/ML SYR ONE (14:48)
[2020-03-12] MEDS ORDERED: MIDAZOLAM HCL 1 MG/ML 2ML VIAL ONE (14:48)
[2020-03-12] MEDS ORDERED: fentaNYL citrate 100 MCG/2 ML VIAL ONE ×2 (14:49→15:56)
--- NOTE | 2020-03-12 14:51 | Fluoroscopy Report ---
FL pelvis 1-2V CLINICAL HISTORY: BLADDER OBSTRUCTION COMPARISON STUDY: None. FLUOROSCOPY TIME: 9 seconds. FLUOROSCOPIC IMAGES: 3 FINDINGS: Fluoroscopy was provided during cystoscopy with suprapubic catheter placement. IMPRESSION: Fluoroscopy provided during cystoscopy with suprapubic catheter placement. ACT 112: Negative or not required by law. Electronically signed by: Andriy Valerio M.D. 03/12/2020 2:50 PM
--- NOTE | 2020-03-12 14:57 | History & Physical Bridge Note ---
Date of Service March 12, 2020 History & Physical Bridge Note I have examined the patient, reviewed the History & Physical and in the interval since the performance of the History & Physical I have noted the following changes of clinical significance: no changes noted
[2020-03-12] MEDS ORDERED: fentaNYL citrate 100 MCG/2 ML VIAL IV PRN (15:17)
[2020-03-12] MEDS ORDERED: ONDANSETRON INJ 2 MG/ML 2 ML VIAL IV PRN (15:17)
[2020-03-12] MEDS ORDERED: FLUMAZENIL 0.1 MG/1 ML 10 ML VIAL IV PRN (15:17)
[2020-03-12] MEDS ORDERED: NALOXONE HCL 0.4 MG/1 ML VIAL/CARP IV PRN (15:17)
[2020-03-12] MEDS ORDERED: ePHEDrine sulfate 50 MG/ML AMP IV PRN (15:17)
[2020-03-12] MEDS ORDERED: ATROPINE SULFATE 0.1 MG/ML 10ML SYR IV PRN (15:17)
[2020-03-12] MEDS ORDERED: PROMETHAZINE HCL 12.5 MG in SODIUM CHLORIDE 0.9% 50 ML IV PRN (15:17)
[2020-03-12] MEDS ORDERED: LABETALOL HCL IV 5 MG/ML 20ML IV PRN (15:17)
--- NOTE | 2020-03-12 15:17 | Anesthesiology Consultation ---
Date of Service March 12, 2020 Assessment & Plan Chart Review Chart Review: Acceptable Risk for Surgery and Patient NOT seen in Pre Admission Testing Consults Requested none ASA ASA3 Proposed Anesthesia Anesthesia Type: General Risk / Benefits Reviewed With: PT / POA / Parent / Guardian, Accepts Plan and Informed Consent Obtained Additional Comments: covid test negative History Surgery Operation Date: 03/11/20 15:00 Proposed Procedures p Cystoscopy, Ureteral Dilation, - Jasson Sauer MD s Suprapubic Catheter Placement - Jasson Sauer MD Operation Date: 03/12/20 15:25 Proposed Procedures p Cystoscopy, Optical Urethrotomy, Cardona Placement, Foreign Body Removal - Jermain Brock MD Height/Weight Height: 5 ft 9 in Weight: 134 kg Allergies Allergy/AdvReac Type Severity Reaction Status Date / Time No Known Drug Allergies Allergy Unknown Unverified 03/11/20 10:53 peanut Allergy Unknown Unverified 03/11/20 10:53 Medications Home Medications Medication Instructions Recorded Confirmed Last Taken No Known Home Medications 03/11/20 03/11/20 Unknown Active Medications Generic Name Dose Route Start Last Admin Trade Name Freq PRN Reason Stop Dose Admin Docusate Sodium 100 mg 03/11/20 21:00 03/12/20 08:03 Docusate Sodium 100 Mg Cap PO 04/10/20 20:59 100 mg BID KEYUR Administration Ciprofloxacin 400 mg in 200 mls @ 100 mls/hr 03/12/20 09:00 03/12/20 10:11 Cipro / D5w IV 03/22/20 08:59 Infused Q12H KEYUR Infusion Protocol Oxycodone HCl 10 mg 03/11/20 18:48 03/12/20 10:14 Oxycodone Hcl Ir 5 Mg Tab (Immediate Release) PO 03/25/20 18:47 10 mg Q4H PRN Administration SEVERE Pain (Scale 7,8,9,10) NPO Date Last Intake of Fluids: 03/11/20 Time Last Intake of Fluids: 23:00 Date Last Intake of Solids: 03/11/20 Time Last Intake of Solids: 18:00 Past Medical History Medical History No significant past medical history Exercise / Class Metabolic Activity II 4-5 Yardwork/Stairs/Walk up hill Past Surgical History Surgical History No significant past surgical history Past Anesthesia History No Hx of Anesthesia Complications and No Family Hx of Anesthesia Complications History of PONV No Hx of PONV and No Hx of Motion Sickness Social History Smoking Status: Never smoker Do You Dip or Chew Tobacco: No Hx Alcohol Use: No Hx Substance Use: No Physical Exam Vital Signs Last Vital Signs Temp 37.6 C H 03/12/20 15:05 Pulse 84 03/12/20 15:05 Resp 18 03/12/20 15:05 BP 130/73 03/12/20 15:05 Pulse Ox 93 03/12/20 15:05 Constitutional + morbidly obese ENMT Mouth: no dentition abnormality Thyromental Distance: > or= 3.5 Finger Breadths Mallampati Class: II Neck normal visual inspection, trachea midline and + thick neck; neck extension not limited Respiratory normal respiratory effort Auscultation: lungs clear to auscultation bilaterally Cardiovascular Rate/Rhythm: regular rate and regular rhythm Heart Sounds: no murmur Vessels: no carotid bruit Musculoskeletal Spine: normal cervical ROM Extremities: extremities normal to inspection Neurologic moves all extremities Motor/Sensory: no sensory deficit Psychiatric Orientation: alert and oriented x 3 Testing Laboratory Results 03/12/20 06:47 03/12/20 06:47 Urine Color Red 03/11/20 Unknown Urine Appearance Turbid (Clear) A 03/11/20 Unknown Urine pH 6.5 (4.5-7.5) 03/11/20 Unknown Ur Specific [place] >= 1.030 (1.000-1.030) 03/11/20 Unknown Urine Protein 3+ (Negative) H 03/11/20 Unknown Urine Glucose (UA) Negative (Negative) 03/11/20 Unknown Urine Ketones Negative (Negative) 03/11/20 Unknown Urine Nitrite Negative (Negative) 03/11/20 Unknown Ur Leukocyte Esterase Negative (Negative) 03/11/20 Unknown Urine WBC (Auto) Cancelled 03/11/20 19:05 Urine RBC (Auto) Cancelled 03/11/20 19:05 U Hyaline Cast (Auto) Cancelled 03/11/20 19:05 U Epithel Cells (Auto) Cancelled 03/11/20 19:05 Urine Bacteria (Auto) Cancelled 03/11/20 19:05 Urine RBC >30 /hpf (0-4) H 03/11/20 Unknown Urine WBC 10-30 /hpf (0-5) H 03/11/20 Unknown Ur Epithelial Cells 0-5 /lpf (0-5) 03/11/20 Unknown Blood Type AB Positive 03/11/20 15:13 Antibody Screen NEGATIVE 03/11/20 15:13 03/11/20 Unknown Urine Culture - Preliminary Urine,Clean Catch Pin-point growth present, reincubating.
--- NOTE | 2020-03-12 17:08 | Operative Report ---
PG Post Operative Report Pre & Post Diagnosis Operation Date: 03/11/20 15:00 Pre-Op Diagnosis: Acute urinary retention Post-Op Diagnosis: Acute urinary retention Operation Date: 03/12/20 15:25 Pre-Op Diagnosis: Uretheral False Passage, Foreign Body Post-Op Diagnosis: Uretheral False Passage, Foreign Body I identified the patient and participated in the time-out.: Yes Procedure Operation Date: 03/12/20 15:25 Actual Procedures p Cystoscopy, Urethral Dilation, Subrapubic Catheter Removal, Cardona Placement, Foreign Body Removal(Not Applicable) - Jermain Brock MD Surgeon Negrito Brock MD Clinical Athletic Instructor NONE Estimated Blood Loss 10 Findings See Below Specimens none Anesthesia Type General Complications none Disposition Accompanied Patient To Recovery: Yes Disposition: Recovery Room Description of Procedure The patient was identified in the preoperative holding area and brought to the operating suite after review of appropriate consents. He received appropriate general anesthesia and was placed in dorsal lithotomy position. To begin the case I attempted to pass a 22 Spanish cystoscope. I was able to advance this for approximately 3 cm and visualization was extremely compromised. I was unable to identify a urethral lumen as it appeared to be filled with clot. I ultimately utilized a pressure bag to try to increase flow into the urethra to better visualize this and clear the urethra of clot. I did evacuate several clots and then I noted that it appeared that the entire circumferential aspect of the urethra was striated consistent with a false passage. I retracted the scope to the true meatus and attempted to look for a true lumen. Of note, there was a lump bit of pink appearing tissue in the mid aspect of the urethral lumen that it seemed to extend from the meatus back to the area where I could no longer advance the scope near the bulb. I could not identify a lumen and this appeared to be a long finger of tissue that I had presumed was a strip of urethral mucosa that had been torn during initial catheter placement efforts. As I inspected further and further identified no true lumen. The entire urethra appears to be traumatized. I ultimately began probing with a wire utilizing fluoroscopy to try to see if I could I observe a wire advancing to the bladder. Of note, prior to passing the wire I also opacified the urethra with contrast in an effort to try to develop a roadmap over which I could guide the wire. Unfortunately moving retrograde proved unsuccessful. In the midst of these efforts I realized that the tissue floating within the midst of the urethra was then entire urethral mucosa which had been avulsed from the subcutaneous tissue circumferentially. I attempted to probe an opening in the tip of this tissue but was unsuccessful. After spending approximately 40 minutes in efforts to try to find a way to access the true urethra and bladder from below, I elected to try from above. He has a Stamey style suprapubic catheter in place and I utilize this first to introduce contrast to fill the bladder and second to try to introduce a wire. My initial efforts to advance a wire were unsuccessful. I ultimately was able to guide a sensor wire into the urethra. Unfortunately I could not pass this down the urethra far enough to be able to visualize it nor feel it at the meatus. I attempted to guide a scope and from the meatus and try to meet the wire at the ball but was unsuccessful. I then gently guided a 5 Spanish open-ended catheter over the wire and through the suprapubic tube until it was positioned in the presumed location of the prostatic urethra. I withdrew the wire and I advanced a Roadrunner wire as an alternative. This wire slipped through the strictured area and progressed to the meatus without difficulty. I clamped the wire at the suprapubic side and advanced the 5 Spanish open-ended catheter over this wire until I could visualize it at the meatus. I then had a 5 Spanish open-ended catheter extending from the tip of the penis through the suprapubic site. I exchanged the roadrunner wire for a Super Stiff wire. I passed the scope alongside the wire and confirmed that the Super Stiff wire was protruding through the tissue that was free- floating in the midst of the urethra confirming that this was the true urethral mucosa. I then performed a urethral dilation utilizing Rishi style urethral sounds. A 20 Spanish sound passed without significant difficulty. I then attempted to scope alongside the wire to see if I could see the lumen and guided scope into the bladder. This proved unsuccessful as the mounded tissue would not accommodate the scope given that it had no support structure left. Instead, I elected to try to pass a 16 [place] tip catheter. This was successful and under fluoroscopy I could confirm that this had progressed into the bladder. I inflated the balloon leaving the catheter in the bladder. I then withdrew the Super Stiff wire and utilized the suprapubic catheter to pass a stent grasper. Under pure fluoroscopic guidance I attempted to guide the tip of the stent grasper towards the end of the foreign body (filiform) that I could visualize under fluoroscopy. I gently performed several attempts to grab this and ultimately succeeded in grasping the end of this filiform. I cut the stitches holding the SP tube in place and withdrew the grasper, SP tube and filiform en bloc. I performed this extraction under fluoroscopic guidance and met minimal resistance in guiding it out of the body. I then irrigated the catheter copiously to confirm its position and it was relatively clear. I therefore elected to complete the case as the foreign body had been removed and a catheter been was successfully placed into the bladder. He was reversed from anesthesia and taken to the PACU in stable condition. There were no complications. I attest to the content of the Intraoperative Record and any orders documented therein. Any exceptions are noted below.
--- NOTE | 2020-03-12 17:17 | Fluoroscopy Report ---
FL retrograde includes kub CLINICAL HISTORY: RETROGRADES COMPARISON STUDY: Abdominal ultrasound March 12, 2020. FLUOROSCOPY TIME: 3 minutes and 38 seconds. FLUOROSCOPIC IMAGES: 9 FINDINGS: Fluoroscopy was provided during cystoscopy and urethral dilatation. Note is made of contras t within the bladder and urethra. IMPRESSION: Fluoroscopy provided during cystoscopy and urethral dilatation. ACT 112: Negative or not required by law. Electronically signed by: Andriy Valerio M.D. 03/12/2020 5:16 PM
--- NOTE | 2020-03-12 17:41 | Anesthesiology Progress Note ---
Date of Service March 12, 2020 Anesthesia Post Procedure Vital Signs Vital Signs: Temp Pulse Pulse Resp BP BP Pulse Ox 03/12/20 17:32 88 24 135/90 97 03/12/20 17:25 91 H 24 159/93 H 98 03/12/20 17:15 91 H 20 144/85 H 100 03/12/20 17:07 37.4 C 94 H 20 116/83 99 03/12/20 15:05 37.6 C H 84 18 130/73 93 03/12/20 07:42 37.3 C 79 16 110/72 97 03/12/20 03:10 37.4 C 88 20 122/72 92 03/11/20 23:20 36.9 C 86 20 91/55 L 93 03/11/20 21:36 37.0 C 94 H 17 115/70 95 03/11/20 20:48 36.7 C 91 H 17 107/70 93 03/11/20 19:37 36.6 C 93 H 18 100/66 100 03/11/20 19:03 85 18 111/78 99 03/11/20 18:35 36.8 C 90 18 118/74 92 03/11/20 18:10 36.6 C 89 20 138/77 95 03/11/20 18:00 36.6 C 86 18 133/82 94 03/11/20 17:50 36.6 C 90 23 130/82 94 Pain Intensity Bilateral Groin: Pain Intensity: 8 Transfer of Care Handoff Completed per policy Notes Mental Status: alert / awake / arousable Patient Amnestic to Procedure: Yes Nausea / Vomiting: adequately controlled Pain: adequately controlled Airway Patency, RR, SpO2: stable & adequate BP & HR: stable & adequate Hydration State: stable & adequate Anesthetic Complications: no major complications apparent
[2020-03-13] MEDS: oxyCODONE HCL IR 5 MG TAB (IMMEDIATE RELEASE) PO PRN (06:07)
[2020-03-13 07:51] LABS: INR 1.1 (0.9-1.1); Prothrombin Time 11.6 Seconds (9.0-12.0)
[2020-03-13 07:57] LABS: Hematocrit (blood only) 33.5 % (42-52); Hemoglobin 11.4 g/dL (14.0-18.0); Mean Corpuscular Hemoglobin 27.5 pg (25-34); Mean Corpuscular Volume 80.7 fL (80-100); Mean Platelet Volume 9.5 fL (7.4-10.4); Platelet Count 157 K/uL (130-400); RDW Coefficient of Variation 14.8 % (11.5-14.5); RDW Standard Deviation 43.3 fL (36.4-46.3); Red Blood Count 4.15 M/uL (4.7-6.1); White Blood Count 11.76 K/uL (4.8-10.8)
[2020-03-13 08:11] LABS: Albumin Level 2.5 gm/dl (3.4-5.0); BUN Creatinine Ratio 14.7 (10-20); Calcium 8.3 mg/dl (8.5-10.1); Creatinine Clr Calc Pharmacy 170.2 ml/min; Est GFR (African American) 129.5; Est GFR (Non-African American) 111.7; Magnesium 2.2 mg/dl (1.8-2.4); Potassium 3.8 mmol/L (3.5-5.1)
[2020-03-13 08:21] LABS: Albumin Globulin Ratio 0.6 (0.9-2); Bilirubin,Total 0.7 mg/dl (0.2-1); Ferritin 830.5 ng/ml (8-388); Thyroid Stimulating Hormone 0.758 uIu/ml (0.300-4.500); Total Protein 6.5 gm/dl (6.4-8.2)
--- NOTE | 2020-03-13 09:23 | Urology Progress Note ---
Date of Service March 13, 2020 Assessment & Plan (1) Acute urinary retention: Assessment #1 acute urinary retention Patient now has a Cardona catheter in the bladder Catheter is going to need to stay for at least 6 to 8 weeks I did talk to the patient and told him it is extremely important that that catheter not be removed and he needs to be very careful with it #2 abnormal liver function tests and platelet count-medical work-up in progress by the hospitalist Admission and Anticipated Discharge Date Admission Date: March 11, 2020 Subjective Postop day 1 from Cardona cath placement and removal of bladder foreign body Patient's afebrile vital signs are stable Patient says he feels much better Abdominal pain is pretty much resolved Tolerating regular diet well Urine output excellent urine clear in Cardona Physical Exam Physical Exam: Constitutional Well-developed well-nourished In no acute distress, Healthy appearing Neuro/psych Alert and oriented x3 Normal mood Normal affect Normal coordination Skin Normal color Normal turgor No rashes Warm and Dry Neck Normal visual inspection Pulmonary Normal rhythm and effort No respiratory distress No audible wheezes Able to speak in complete sentences Cardiac No peripheral edema Extremities No calf pain or edema Results & Data ([facility]) Vital Signs (Past 12 Hours) Vital Signs Temp Pulse Resp BP Pulse Ox 03/13/20 07:30 37.4 C 78 16 124/77 94 03/13/20 04:01 37.5 C 87 20 140/84 93 03/12/20 23:10 37.8 C H 87 20 115/70 94 Laboratory Results Laboratory Results - last 24 hr 03/12/20 03/12/20 03/13/20 10:54 10:54 07:25 WBC 11.76 H RBC 4.15 L Hgb 11.4 L Hct 33.5 L MCV 80.7 MCH 27.5 MCHC 34.0 RDW Std Deviation 43.3 RDW Coeff of Nino 14.8 H Plt Count 157 D MPV 9.5 Peripher Smr Path Cons Pending PT INR Sodium Potassium Chloride Carbon Dioxide Anion Gap BUN Creatinine Est Cr Clr Drug Dosing Est GFR ( Amer) Est GFR (Non-Af Amer) BUN/Creatinine Ratio Glucose Calcium Magnesium Ferritin Total Bilirubin GGT AST ALT Alkaline Phosphatase Total Creatine Kinase Total Protein Albumin Globulin Albumin/Globulin Ratio Ceruloplasmin TSH Cortisol AM Sample SIN Screen Liver/Kid Microsomes Ab Hepatitis A IgM Ab Pending Hep Bs Antigen Neg Hep B Core IgM Ab Pending Hepatitis C Antibody Neg 03/13/20 03/13/20 03/13/20 07:25 07:25 07:25 WBC RBC Hgb Hct MCV MCH MCHC RDW Std Deviation RDW Coeff of Nino Plt Count MPV Peripher Smr Path Cons PT 11.6 INR 1.1 Sodium 137 Potassium 3.8 Chloride 104 Carbon Dioxide 27 Anion Gap 6.0 BUN 11 Creatinine 0.76 Est Cr Clr Drug Dosing 170.2 Est GFR ( Amer) 129.5 Est GFR (Non-Af Amer) 111.7 BUN/Creatinine Ratio 14.7 Glucose 103 H Calcium 8.3 L Magnesium 2.2 Ferritin 830.5 H Total Bilirubin 0.7 GGT AST 48 H ALT 71 Alkaline Phosphatase 141 H Total Creatine Kinase 70 Total Protein 6.5 Albumin 2.5 L Globulin 4.0 Albumin/Globulin Ratio 0.6 L Ceruloplasmin TSH 0.758 Cortisol AM Sample 13.77 SIN Screen Liver/Kid Microsomes Ab Hepatitis A IgM Ab Hep Bs Antigen Hep B Core IgM Ab Hepatitis C Antibody 03/13/20 03/13/20 07:25 07:25 WBC RBC Hgb Hct MCV MCH MCHC RDW Std Deviation RDW Coeff of Nino Plt Count MPV Peripher Smr Path Cons PT INR Sodium Potassium Chloride Carbon Dioxide Anion Gap BUN Creatinine Est Cr Clr Drug Dosing Est GFR ( Amer) Est GFR (Non-Af Amer) BUN/Creatinine Ratio Glucose Calcium Magnesium Ferritin Total Bilirubin GGT Pending AST ALT Alkaline Phosphatase Total Creatine Kinase Total Protein Albumin Globulin Albumin/Globulin Ratio Ceruloplasmin Pending TSH Cortisol AM Sample SIN Screen Pending Liver/Kid Microsomes Ab Pending Hepatitis A IgM Ab Hep Bs Antigen Hep B Core IgM Ab Hepatitis C Antibody PG Care Time/CCT Total # of Minutes Spent Total Time Spent with Patient: Total time spent is greater than 50% in coordination of care (as documented) at patient's floor/unit and/or counseling patient: Coding Level of Care Code None Diagnoses Acute urinary retention R33.8
[2020-03-13] MEDS: DOCUSATE SODIUM 100 MG CAP PO SCH ×2 (09:56→20:19)
[2020-03-13] MEDS: CIPROFLOXACIN / D5W 400 MG/200 ML BAG IV SCH ×2 (09:57→20:20)
--- NOTE | 2020-03-13 11:31 | Urology Progress Note ---
Date of Service March 13, 2020 Assessment & Plan (1) Acute urinary retention: Status post conversion of SP tube to urethral catheter with dilation of urethra and extraction of foreign body Fortunately we were able to get his bladder and urethra back in continuity. He has a catheter in place now He will need to continue with this catheter for a minimum of 1 month before having another procedure to evaluate healing Ambulate now Presuming pain is under control, likely is stable for discharge home later today or tomorrow Admission and Anticipated Discharge Date Admission Date: March 11, 2020 Subjective Subjectively improved today Urine drained well overnight He still has some discomfort, particularly in the left groin, but overall feels that he is substantially better than he was yesterday Review of Systems Review of Systems: All systems reviewed & are unremarkable except as noted in HPI & below Physical Exam Physical Exam: Urine clear Constitutional: well developed and well nourished Respiratory: no respiratory distress Cardiovascular: Extremities: no pedal edema Gastrointestinal (Abdomen): Inspection/Auscultation: abdomen normal to inspection Results & Data ([facility]) Vital Signs (Past 12 Hours) Vital Signs Temp Pulse Resp BP Pulse Ox 03/13/20 07:30 37.4 C 78 16 124/77 94 03/13/20 04:01 37.5 C 87 20 140/84 93 PG Care Time/CCT Total # of Minutes Spent Total Time Spent with Patient: Total time spent is greater than 50% in coordination of care (as documented) at patient's floor/unit and/or counseling patient: Coding Level of Care Code 93961 Subseq Hosp Care Lvl 2 Diagnoses Acute urinary retention R33.8
[2020-03-13 12:26] LABS: Iron 81 mcg/dl (35-175); Total Iron Binding Capacity 220 mcg/dl (250-450); Transferrin 189 mg/dl (200-360)
--- NOTE | 2020-03-13 23:44 | Hospitalist Progress Note ---
Date of Service March 13, 2020 Assessment & Plan (1) Acute urinary retention: Requiring suprapubic catheter on 03/11/2020. - Per primary team (2) Elevated LFTs: AST/ALT elevated to 75/100. Alk phos is 187. RUQ u/s on 03/12 showed hepatic steatosis and no gallbladder pathology. LFTs are improving. Iron studies do not supports hemochromoatosis, ferritin is high but TSAT is not elevated. Patient may beenfit from outpatient GI consult. - Ddx is very broad: * Viral hepatitis * BRUNNER * Autoimmune * Hemochromatosis (3) Thrombocytopenia: Platelets are improving, will continue to monitor. (4) DVT prophylaxis: SCDs - Heparin per primary team. Plts > 50k are not a contra-indication to heparin if primary team feels it is warranted. Admission and Anticipated Discharge Date Admission Date: March 11, 2020 Subjective 44 yo male reports feeling better today. He has no new complaints today. Review of Systems Review of Systems: All systems reviewed & are unremarkable except as noted in HPI & below Physical Exam Physical Exam: Constitutional: WD/WN, vitals as above + obese; no acute distress Eyes: EOM intact bilaterally; no conjunctival abnormality ENMT: external ear and nose normal, oropharynx normal Neck: trachea midline, no thyromegaly normal visual inspection Respiratory: normal respiratory effort, lungs clear to auscultation no respiratory distress Cardiovascular: RRR, no murmur, no edema Gastrointestinal (Abdomen): Inspection/Auscultation: + abdomen abnormal to inspection (Suprapubic catheter in place) and abdomen not distended Percussion/Palpation: abdomen soft; abdomen nontender, no guarding, abdomen not rigid and no hepatosplenomegaly Musculoskeletal: no cyanosis or clubbing, extremities motor strength 5/5 Skin: no rashes, warm and dry Neurologic: moves all extremities and awake Psychiatric: Orientation: alert, oriented to person and cooperative Results & Data Results & Data ([facility]) Vital Signs (Past 12 Hours) Vital Signs Temp Pulse Resp BP Pulse Ox 03/13/20 23:34 37.7 C H 86 16 114/68 94 03/13/20 15:17 37.3 C 77 17 114/75 95 PG Care Time/CCT Total # of Minutes Spent Total Time Spent with Patient: Total time spent is greater than 50% in coordination of care (as documented) at patient's floor/unit and/or counseling patient: Coding Level of Care Code 25015 Subseq Hosp Care Lvl 3 Diagnoses Acute urinary retention R33.8 Elevated LFTs R79.89 Thrombocytopenia D69.6 DVT prophylaxis Z29.9 Time Spent (min) 35
[2020-03-14 03:30] LABS: Hepatitis A Antibody IgM NON-REACTIVE (NON-REACTIVE); Hepatitis B Core Antibody IgM NON-REACTIVE (NON-REACTIVE)
[2020-03-14 07:29] LABS: Nucleated RBC # (auto) 0.04 K/uL (0-0); Nucleated RBC % (auto) 0.3 %
[2020-03-14 07:56] LABS: Albumin Level 2.6 gm/dl (3.4-5.0); BUN Creatinine Ratio 13.3 (10-20); Calcium 8.9 mg/dl (8.5-10.1); Creatinine Clr Calc Pharmacy 163.7 ml/min; Est GFR (African American) 127.5; Potassium 3.8 mmol/L (3.5-5.1)
[2020-03-14 07:59] LABS: Albumin Globulin Ratio 0.6 (0.9-2); Bilirubin,Total 0.8 mg/dl (0.2-1); Globulin 4.3 gm/dl (2.5-4.0); Total Protein 6.9 gm/dl (6.4-8.2)
[2020-03-14 08:01] LABS: Hematocrit (blood only) 33.8 % (42-52); Hemoglobin 11.5 g/dL (14.0-18.0); Mean Corpuscular Hemoglobin 27.6 pg (25-34); Mean Corpuscular Volume 81.3 fL (80-100); Mean Platelet Volume 9.3 fL (7.4-10.4); Platelet Count 270 K/uL (130-400); RDW Coefficient of Variation 14.6 % (11.5-14.5); RDW Standard Deviation 42.9 fL (36.4-46.3); Red Blood Count 4.16 M/uL (4.7-6.1); White Blood Count 14.16 K/uL (4.8-10.8)
[2020-03-14 08:11] LABS: Basophils # (auto) 0.04 K/uL (0-0.2); Basophils % (auto) 0.3 %; Eosinophils # (auto) 0.22 K/uL (0-0.5); Eosinophils % (auto) 1.6 %; Immature Granulocytes # (auto) 0.17 K/uL (0.00-0.02); Immature Granulocytes % (auto) 1.2 %; Lymphocytes # (auto) 2.42 K/uL (1.2-3.4); Lymphocytes % (auto) 17.1 %; Monocytes # (auto) 1.22 K/uL (0.11-0.59); Monocytes % (auto) 8.6 %; Neutrophils # (auto) 10.09 K/uL (1.4-6.5); Neutrophils % (auto) 71.2 %; Target Cells 1+
[2020-03-14] MEDS: CIPROFLOXACIN / D5W 400 MG/200 ML BAG IV SCH ×2 (08:23→22:22)
[2020-03-14] MEDS: DOCUSATE SODIUM 100 MG CAP PO SCH ×2 (08:23→22:23)
[2020-03-14] MEDS: oxyCODONE HCL IR 5 MG TAB (IMMEDIATE RELEASE) PO PRN ×3 (08:26→22:21)
[2020-03-15] MEDS: CIPROFLOXACIN / D5W 400 MG/200 ML BAG IV SCH ×2 (00:30→09:22)
[2020-03-15] MEDS: oxyCODONE HCL IR 5 MG TAB (IMMEDIATE RELEASE) PO PRN (02:29)
--- NOTE | 2020-03-15 07:46 | CT Scan Report ---
CT OF THE HEAD WITHOUT CONTRAST CLINICAL HISTORY: Left lower limb weakness COMPARISON STUDY: No previous studies for comparison. CT DOSE: 537.48 mGy.cm TECHNIQUE: Helical axial images of the head were obtained without IV contrast. Automated exposure con trol was utilized for the study. A dose lowering technique was utilized adhering to the principles o f ALARA. FINDINGS: No acute intracranial hemorrhage, midline shift or mass effect is present. Scattered white matter hypodensities are present. The ventricular system is unremarkable. The basilar cisterns are pa tent. No extra-axial collections are present. There are no findings to suggest acute dural sinus thro mbosis or acute territorial infarct. No significant calvarial abnormalities are present. Visualized p ortions of the sinuses and mastoid air cells are clear. IMPRESSION: 1. No acute intracranial findings. 2. Scattered white matter hypodensities which are nonspecific. ACT 112: Negative or not required by law. Electronically signed by: Andriy Valerio M.D. 03/15/2020 7:45 AM
[2020-03-15] MEDS ORDERED: GADOBUTROL 65ML VIAL IV ONE (08:39)
--- NOTE | 2020-03-15 09:11 | Magnetic Resonance Report ---
MRI OF THE LUMBAR SPINE WITH AND WITHOUT CONTRAST CLINICAL HISTORY: Cauda equina. Left leg weakness. COMPARISON STUDY: No previous studies for comparison. TECHNIQUE: Utilizing a 1.5 [place] magnet and dedicated coil, multiplanar, multiecho imaging of the donovan ar spine was performed before and after uneventful IV administration of Gadavist. FINDINGS: For purposes of numbering on this exam, the L5-S1 disc space is assigned to axial image 27 of 30. Ali gnment of the lumbar spine is anatomic. Vertebral body heights are maintained. There is no marrow erwin ma or marrow replacement. The conus terminates at the lower T12 level. Paravertebral soft tissues are unremarkable. There is no abnormal enhancement within the lumbar canal. Paravertebral soft tissues a re unremarkable. A few mildly enlarged left para-aortic lymph nodes measure up to 1.1 cm. L1-2: The central canal and neural foramen are patent. L2-3: The central canal and neural foramen are patent. L3-4: The central canal and neural foramen are patent. L4-5: The central canal and neural foramen are patent. L5-S1: There is moderate facet arthrosis. There is disc bulge with a small right foraminal annular te ar and small superimposed disc protrusion. There is moderate narrowing of the right neural foramen at this level. There is also moderate narrowing of the right lateral recess. There is mild narrowing of the left neural foramen. Central canal is patent. IMPRESSION: 1. No central canal stenosis. 2. Moderate facet arthrosis, disc bulge with small superimposed right foraminal disc protrusion at L5 -S1 that result in moderate narrowing of the right neural foramen and right lateral recess at this le [place]. 3. No lumbar spine fracture. 4. A few mildly enlarged left paraaortic lymph nodes which are nonspecific. ACT 112: Negative or not required by law. Electronically signed by: Andriy Valerio M.D. 03/15/2020 9:10 AM
[2020-03-15] MEDS: DOCUSATE SODIUM 100 MG CAP PO SCH (09:22)
[2020-03-15 12:26] LABS: Basophils # (auto) 0.03 K/uL (0-0.2); Basophils % (auto) 0.2 %; Eosinophils # (auto) 0.25 K/uL (0-0.5); Eosinophils % (auto) 1.5 %; Hematocrit (blood only) 34.4 % (42-52); Hemoglobin 11.7 g/dL (14.0-18.0); Immature Granulocytes # (auto) 0.35 K/uL (0.00-0.02); Immature Granulocytes % (auto) 2.2 %; Lymphocytes % (auto) 14.2 %; Mean Corpuscular Hemoglobin 27.9 pg (25-34); Mean Corpuscular Volume 82.1 fL (80-100); Mean Platelet Volume 8.6 fL (7.4-10.4); Monocytes # (auto) 1.38 K/uL (0.11-0.59); Monocytes % (auto) 8.5 %; Neutrophils # (auto) 11.93 K/uL (1.4-6.5); Neutrophils % (auto) 73.4 %; Platelet Count 387 K/uL (130-400); RDW Coefficient of Variation 14.8 % (11.5-14.5); RDW Standard Deviation 44.2 fL (36.4-46.3); Red Blood Count 4.19 M/uL (4.7-6.1); White Blood Count 16.24 K/uL (4.8-10.8)
[2020-03-15 12:34] LABS: Est GFR (African American) 121.9; Est GFR (Non-African American) 105.2; Potassium 4.3 mmol/L (3.5-5.1)
--- NOTE | 2020-03-15 12:44 | Urology Progress Note ---
Date of Service March 14, 2020 Assessment & Plan (1) Acute urinary retention: POD2 Status post conversion of SP tube to urethral catheter with dilation of urethra and extraction of foreign body Plan was to continue supportive care. Medicine team has been monitoring. We will continue to monitor Admission and Anticipated Discharge Date Admission Date: March 11, 2020 Subjective Postop day 2 from placement of catheter with removal foreign body and traumatic catheterization with stricture disease. Multiple attempts to examine and assess patient throughout the day failed secondary to patient being out of room or in restroom. Spoke with correctional officers who were with patient. No major changes or issues. Intermittent groin pain Review of Systems Review of Systems: Limited due to lack of patient response Physical Exam Physical Exam: Patient alert but was not responding to questions. Results & Data ([facility]) Vital Signs (Past 12 Hours) Vital Signs Temp Pulse Resp BP Pulse Ox 03/15/20 09:01 37.1 C 84 16 136/74 95 PG Care Time/CCT Total # of Minutes Spent Total Time Spent with Patient: Total time spent is greater than 50% in coordination of care (as documented) at patient's floor/unit and/or counseling patient: Coding Level of Care Code 53265 Subseq Hosp Care Lvl 1 Diagnoses Acute urinary retention R33.8
--- NOTE | 2020-03-15 12:46 | Urology Progress Note ---
Date of Service March 15, 2020 Assessment & Plan (1) Acute urinary retention: POD3 Status post conversion of SP tube to urethral catheter with dilation of urethra and extraction of foreign body Spoke with hospitalist team. No further work-up recommended from their end. We will plan for discharge with approximately 7 days of antibiotics. This should be coordinated through the corrections facility. Otherwise patient should be free to discharge to correctional facility. Pain control with medication such as NSAIDs and Tylenol as needed. Further medications at the discretion of the correction facility Admission and Anticipated Discharge Date Admission Date: March 11, 2020 Subjective Postop day 3 from placement of catheter with removal foreign body and traumatic catheterization with stricture disease. Patient has intermittent groin pain. Concern for possible back issues and retention concerns. Patient had undergone MRI overnight which was reviewed. Patient is tolerating catheter with discomfort but only minor issues. No major changes or bother. No fevers or infections. Has been on antibiotics Review of Systems Review of Systems: All systems reviewed & are unremarkable except as noted in HPI & below Physical Exam Physical Exam: General: Alert in no acute distress. HEENT: Normocephalic Atraumatic. Inspection normal. Cranial Nerves 2-12 Grossly intact. Normal inspection of face. Normal inspection of neck. Psychologic: Normal affect. Respiratory: Nonlabored. No use of accessory muscles. No tachypnea or dyspnea. Cardiovascular: No tachycardia Skin: [place] and Dry. No rashes or visible lesions. Extremities/Lymphatics: No edema Abdomen: Soft Non-distended. No rebound or guarding. : Catheter in place draining clear urine Results & Data ([facility]) Vital Signs (Past 12 Hours) Vital Signs Temp Pulse Resp BP Pulse Ox 03/15/20 09:01 37.1 C 84 16 136/74 95 PG Care Time/CCT Total # of Minutes Spent Total Time Spent with Patient: Total time spent is greater than 50% in coordination of care (as documented) at patient's floor/unit and/or counseling patient: Coding Level of Care Code 77879 Subseq Hosp Care Lvl 3 Diagnoses Acute urinary retention R33.8
--- NOTE | 2020-03-15 13:35 | Discharge Summary ---
Date of Service March 15, 2020 Admission HPI Per Admitting Provider See H&P Admission Exam Per Admitting Provider See H&P Principal Diagnosis Acute retention. Traumatic Cardona Discharge Exam General: Alert in no acute distress. HEENT: Normocephalic Atraumatic. Inspection normal. Psychologic: Normal affect. Skin: Glacier and Dry. No rashes or visible lesions. Abdomen: Soft Non-distended. No rebound or guarding. Discharge Data Allergies Allergy/AdvReac Type Severity Reaction Status Date / Time No Known Drug Allergies Allergy Unknown Unverified 03/11/20 10:53 peanut Allergy Unknown Unverified 03/11/20 10:53 Consultations 03/12/20 08:22 Consult Hospitalist Routine 03/15/20 11:50 Consult Orthopedic Surgery Routine Procedures Performed Operation Date: 03/11/20 15:00 Actual Procedures p Cystoscopy, - Jasson Sauer MD s Ultrasound Guided Placement of Suprapubic Catheter - Jasson Sauer MD Operation Date: 03/12/20 15:25 Actual Procedures p Cystoscopy, Urethral Dilation, Subrapubic Catheter Removal, Cardona Placement, Foreign Body Removal(Not Applicable) - Jermain Brock MD Ordered Studies 03/11/20 FL fluoroscopy <1hr Routine FL pelvis 1-2V Routine 03/11/20 15:33 US guide intraoperative Routine 03/12/20 10:40 US abdomen complete Routine 03/12/20 15:00 FL retrograde includes kub Routine 03/15/20 04:40 CT head/brain wo con Urgent MR lumbar spine wo/w con Stat Hospital Course (1) Acute urinary retention: POD3 Status post conversion of SP tube to urethral catheter with dilation of urethra and extraction of foreign body Spoke with hospitalist team. No further work-up recommended from their end. We will plan for discharge with approximately 7 days of antibiotics. This should be coordinated through the corrections facility. Otherwise patient should be free to discharge to correctional facility. Pain control with medication such as NSAIDs and Tylenol as needed. Further medications at the discretion of the correction facility Total Time Total Time Spent Total Time Spent (In Minutes): 10 minutes Total Time Includes: Examination of the Patient, Discharge Planning, Medication Reconciliation and Communication With Other Providers Discharge Plan Discharge Items Patient Disposition: Correctional Facility Reason For Visit: UNABLE TO VOID Discharge Diagnosis: Same Condition on Discharge: Good Activity: Resume your previous activity Lifting: No more than 50 pounds Bathing Comment: Okay to wash Exercise/Sports: Gradually increase as tolerated Non-emergency contact: Urologist Call non-emergency contact if: you have any medication questions, your symptoms worsen, your pain is not controlled, your pain is worsening, your pain is unusual for you, your pain is concerning for you, you have a fever, your temperature is above 101.5, your wound has increased redness, your wound has increased drainage and your wound pain has increased Follow-up/Referrals: Rosita SOLANO [Primary Care Provider] - Diet: Regular Addtl Attending Provider Instructions: Okay to wash as needed. Patient to maintain catheter until follow-up at which point he will be assessed for possible removal. We will continue monitoring. Pending Studies at Discharge: No Stand-Alone Forms: [employer], Smoking Cessation Skilled Items Patient informed of condition?: Yes Discharge Level of Care: Other Communicable Disease: No Discharge Prognosis: Stable Lines: None Urinary Catheter: Yes Medications and DC Order Prescriptions: New ciprofloxacin HCl [Cipro] 500 mg tablet 500 mg PO Q12H Qty: 14 RF: 0 No Action No Known Home Medications RF: 0 Discharge Orders: Discharge Order (Routine); Ordered 03/15/20 Ordered By: Segun Apodaca Admission Data Admit Date/Time: 03/11/20 17:14 Attending Provider: Jasson Sauer Admit Provider: Jasson Sauer Primary Care Provider: Rosita SOLANO Other Providers: Pasquale Christiansen ; Brandon Mckeon Coding Level of Care Code D/C Day Management <30 mins Diagnoses Acute urinary retention R33.8
[2020-03-19 00:11] LABS: Anti Nuclear Antibody Screen POSITIVE (NEGATIVE); Ceruloplasmin 42 mg/dL (18-36); Liver,Kidney Microsome IgG Ab <=20.0 U (<=20.0)
[2020-03-19 05:30] LABS: ANA Pattern 2 Nuclear, Speckled; ANA Titer 1:40 titer
== END 2020-03-15 15:20 | DRG 696 ==
LOC: ED 09:32 → OR 14:41 → 3W 17:14